=== PATIENT | female | born 1975 | race Caucasian/White ===

== ENCOUNTER 2019-11-08 16:04 | Emergency (ER) | payer MEDICAID, OTHER ==
[~2019-11-08] VITALS: Ht 170.2 cm; Wt 97.5 kg
[2019-11-08 18:30] VITALS: BP 142/55
[2019-11-08] MEDS ORDERED: DexAMETHasone SOD PHOS 10MG/1ML VIAL INJ IM ONE (19:00)
[2019-11-08] MEDS ORDERED: BACLOFEN 10 MG TAB PO ONE (19:00)
[2019-11-08] MEDS ORDERED: HYDROcodone-ACET 10/325MG TAB PO ONE (19:00)
== END 2019-11-08 21:13 | disposition home or self-care (01) ==
LOC: ER 16:04
DX: S16.1XXA Strain of muscle, fascia and tendon at neck level, initial encounter (principal); S00.83XA Contusion of other part of head, initial encounter; X58.XXXA Exposure to other specified factors, initial encounter; Y93.89 Activity, other specified; Y92.89 Other specified places as the place of occurrence of the external cause; Y99.8 Other external cause status
CPT/HCPCS: 96372; 99283; J1100

== ENCOUNTER 2019-12-29 02:31 | Emergency (ER) | payer MEDICAID ==
[~2019-12-29] VITALS: Ht 172.7 cm; Wt 114.9 kg
[2019-12-29 04:11] LABS: Urine Amorphous Crystal FEW /hpf (None Seen); Urine Bacteria FEW /hpf (None Seen); Urine Blood 1+ /uL (Negative); Urine Mucus FEW (None Seen); Urine Specific Gravity 1.032 (1.001-1.035); Urine WBC 7 /hpf (0 - 5)
[2019-12-29 07:00] LABS: Basophils # (auto) 0.1 uL; Basophils % (auto) 1.2 % (0.0-2.0); Eosinophils # (auto) 0.1 uL; Eosinophils % (auto) 1.4 % (0.0-7.0); Hematocrit 44.9 % (36.0-46.0); Hemoglobin 15.3 g/dL (12.2-16.2); Lymphocytes # (auto) 1.7 uL; Lymphocytes % (auto) 19.3 % (10.0-50.0); Mean Corpuscular Hemoglobin 32.2 pg (28.0-32.0); Mean Corpuscular Hgb Conc. 34.2 g/dL (32.0-36.0); Mean Corpuscular Volume 94.3 fL (80.0-100.0); Monocytes # (auto) 0.5 uL; Monocytes % (auto) 5.7 % (0.0-12.0); Neutrophils # (auto) 6.4 uL; Neutrophils % (auto) 72.4 % (37.0-80.0); Platelet Count (auto) 244 10^3/uL (140-450); Red Blood Cells 4.76 10^6/uL (4.0-5.20); Red Cell Distribution Width 13.3 % (11.8-14.3); White Blood Cell 8.9 10^3/uL (4.4-10.8)
[2019-12-29] MEDS ORDERED: MECLIZINE HCL 25 MG TAB PO ONE (07:15)
[2019-12-29] MEDS ORDERED: METOCLOPRAMIDE HCL 5MG/ml INJ 2ml VIAL IV ONE (07:15)
[2019-12-29] MEDS ORDERED: KETOROLAC TROMETH 15 mg/ml 1ML VL IV ONE (07:15)
[2019-12-29 07:21] LABS: Potassium 3.8 mmol/L (3.5-5.1)
[2019-12-29 07:28] LABS: Albumin 4.2 g/dL (3.4-5.0); BUN/Creatinine Ratio 19.5; Bilirubin, Total 0.7 mg/dL (0.2-1.0); Calcium 9.1 mg/dL (8.5-10.1); Total Protein 7.9 g/dL (6.4-8.2)
[2019-12-29 10:09] VITALS: BP 147/80
== END 2019-12-29 10:15 | disposition home or self-care (01) ==
LOC: ER 02:31
DX: G43.B0 Ophthalmoplegic migraine, not intractable (principal); H81.12 Benign paroxysmal vertigo, left ear; N39.0 Urinary tract infection, site not specified
CPT/HCPCS: 36415; 70450; 80053; 81001; 84702; 85025; 96374; 96375; 99284; J1885; J2765; J8597